=== PATIENT | female | born 1995 | race American Indian/Alaskan Native ===

== ENCOUNTER 2017-04-20 13:59 | Emergency (ER) | payer MEDICAID ==
--- NOTE | 2017-04-20 15:10 | ED PDOC ---
Arrival/HPI - General Chief Complaint: Abnormal Skin Integrity Time Seen by Provider: 04/20/17 14:27 Historian: Patient - History of Present Illness Narrative History of Present Illness (Text): 04/20/17 15:17 22-year-old female presents today with a 10 day history of rash to the left breast. Patient states she has a pruritic rash that started about 10 days ago to the left breast that has been gradually worsening. Patient denies pain. She is complaining only of pruritus. She denies fevers or chills no chest pain or shortness of breath. She denies any new soaps lotions or detergents. Patient states that rash is only along the breast line. Patient states she's tried Cortisone 10 without improvement in her symptoms. No other complaints. Time/Duration: > week (10d ays) Symptom Onset: Gradual Symptom Course: Worsening Quality: Other (no pain) Past Medical History - Provider Review Nursing Documentation Reviewed: Yes - Travel History Have you recently traveled outside [place] w/in the past 3 mons?: No - Infectious Disease Hx of Infectious Diseases: None - Reproductive Menopause: No - Psychiatric Hx Substance Use: No Family/Social History - Physician Review Nursing Documentation Reviewed: Yes Family/Social History: Unknown Family HX Smoking Status: Unknown If Ever Smoked Hx Alcohol Use: No Hx Substance Use: No Allergies/Home Meds Allergies/Adverse Reactions: Allergies No Known Allergies Allergy (Verified 04/20/17 14:16) Review of Systems - Review of Systems Constitutional: absent: Fatigue, Fevers Respiratory: absent: SOB, Cough Cardiovascular: absent: Chest Pain, Palpitations Gastrointestinal: absent: Abdominal Pain, Nausea, Vomiting Genitourinary Female: absent: Dysuria, Frequency Musculoskeletal: absent: Arthralgias, Back Pain, Neck Pain Skin: Rash, Pruritis Neurological: absent: Headache, Dizziness Psychiatric: absent: Anxiety, Depression Physical Exam Vital Signs Reviewed: Yes Vital Signs Temp Pulse Resp BP Pulse Ox 04/20/17 14:06 98.7 F 88 16 118/68 99 Temperature: Afebrile Blood Pressure: Normal Pulse: Regular Respiratory Rate: Normal Appearance: Positive for: Well-Appearing, Non-Toxic, Comfortable Pain Distress: None Mental Status: Positive for: Alert and Oriented X 3 - Systems Exam Head: Present: Atraumatic Neck: Present: Normal Range of Motion Respiratory/Chest: Present: Clear to Auscultation Cardiovascular: Present: Regular Rate and Rhythm Abdomen: No: Tenderness Neurological: Present: GCS=15 Skin: Present: Warm, Dry, Rashes (there is an slightly raised erythematous papular confuent rash noted to the intertriginous area of the left breast. non tender. ), Normal Color Psychiatric: Present: Alert, Oriented x 3 Medical Decision Making ED Course and Treatment: 04/20/17 15:21 pt is non toxic well appearing; no distress. stable vitals. c/o 10 day of pruritic rash to left breast. pt most likely with fungal rash to chest/left breast. will start patient on lotrisone; advised f/u with crossbar switch adjuster. advise keeping area clean and dry. advised immediate return if symptoms worsen,persist or if new symptoms develop. impression: fungal rash keep area clean and dry lotrisone twice daily to affected area follow up with the crossbar switch adjuster within the next 2 days follow up with the primary care physician within the next 2 days return immediately if symptoms worsen,persist or if new symptoms develop. Disposition/Present on Arrival - Present on Arrival Any Indicators Present on Arrival: No History of DVT/PE: No History of Uncontrolled Diabetes: No Urinary Catheter: No History of Decub. Ulcer: No History Surgical Site Infection Following: None - Disposition Have Diagnosis and Disposition been Completed?: Yes Diagnosis: Fungal infection, Rash Disposition: HOME/ ROUTINE Disposition Time: 15:09 Patient Plan: Discharge Condition: GOOD Discharge Instructions (ExitCare): Acute Rash (ED) Additional Instructions: keep area clean and dry lotrisone twice daily to affected area follow up with the crossbar switch adjuster within the next 2 days follow up with the primary care physician within the next 2 days return immediately if symptoms worsen,persist or if new symptoms develop. Prescriptions: Clotrimazole/Betamethasone [Lotrisone] 1 appl EXT BID #1 tube Referrals: Cara Flores MD [Staff Provider] - Follow up with primary Johanna Gomez MD [Staff Provider] - Follow up with primary
[2017-04-20 15:20] VITALS: BP 120/70; PULSE 82; RESP 18; TEMP 98.8; O2SAT 100
== END 2017-04-20 15:19 | disposition home or self-care (01) ==
LOC: ED 13:59
DX: R21 Rash and other nonspecific skin eruption (principal); B36.9 Superficial mycosis, unspecified